=== PATIENT | male | born 1955 | race Caucasian/White ===

== ENCOUNTER → 2022-03-09 10:57 | Outpatient (CLI) | payer MEDICARE, SELFPAY ==
--- NOTE | ~2022-03-09 | MR_ITS ---
EXAMINATION: MR lumbar spine wo con DATE: 03/09/2022 12:14 INDICATION: Lumbar radiculopathy. TECHNIQUE: Magnetic resonance imaging (MRI) of the lumbar spine was performed without intravenous con trast. Sequences included sagittal T2-weighted FSE, sagittal T2-weighted FS FSE, sagittal T1-weighted FSE, and axial T2-weighted FSE. COMPARISON: None FINDINGS: There is 4 degrees dextrocurvature of lumbar spine. There is 3 mm retrolisthesis of L2 on L 3 and L3 on L4. Vertebral body heights are normal. There is a hemangioma in L2 vertebral body. There is mildly decreased disc height at L2-L3 and L5-S1. The distal spinal cord signal intensity is normal . The conus medullaris is at L1. The following disc levels are specifically discussed: L1-L2: The disc is bulging and has an annular fissure. There is mild bilateral facet joint osteoarthr itis. There is mild bilateral neural foraminal stenosis. There is mild central canal stenosis. L2-L3: The disc is bulging. There is moderate bilateral facet joint osteoarthritis. There is moderate bilateral neural foraminal stenosis. There is no central canal stenosis. L3-L4: The disc is bulging and has an annular fissure. There is moderate right and mild left facet lowell int osteoarthritis. There is moderate bilateral neural foraminal stenosis. There is mild central roz l stenosis. L4-L5: The disc is bulging and has an annular fissure. There is moderate right and mild left facet lowell int osteoarthritis. There is moderate bilateral neural foraminal stenosis. There is mild central roz l stenosis. L5-S1: The disc is bulging with superimposed left central extrusion with mass effect on the left S1 n erve root in left lateral recess. There is mild bilateral facet joint osteoarthritis. There is modera te bilateral neural foraminal stenosis. There is severe central canal stenosis. There is asymmetric s evere stenosis of left lateral recess. IMPRESSION: 1. Severe lumbar spondylosis, worst at L5-S1. Reviewed, dictated and finalized at location A. [employer]
== END ==
PROVIDERS: PCP Family Medicine; Visit Provider Family Medicine
DX: M47.26 Other spondylosis with radiculopathy, lumbar region (principal)
CPT/HCPCS: 72148